=== PATIENT | female | born 1965 ===

== ENCOUNTER 2020-02-08 08:34 | Day surgery (SDC) | payer OTHER ==
[~2020-02-08 08:34] MED LIST: CLONAZEPAM0.5 MG PO; FOSAMAX70 MG PO; LITHOBID300 M1 PO; SYNTHROID50 MCG PO; WELLBUTRIN SR150 MG; [UNRECOGNIZED DRUG - OTHER]
[2020-02-08] MEDS ORDERED: ZITHROMAX500 MG PO (14:20)
== END 2020-02-08 16:50 | disposition home or self-care (01) ==
LOC: CIR.AMB 08:34 → ADM 10:45 → CIR.AMB 10:45
PROVIDERS: ATTEND Obstetrics & Gynecology
DX: N84.0 Polyp of corpus uteri (principal); N72 Inflammatory disease of cervix uteri

== ENCOUNTER 2020-11-14 10:00 | Inpatient (IN) | payer OTHER ==
[~2020-11-14] VITALS: Ht 157.5 cm; Wt 68.0 kg
[~2020-11-14 10:00] MED LIST changes: +ZITHROMAX500 MG PO
[2020-11-22] MEDS ORDERED: PANTOPRAZOLE SO40 MG (09:17)
[2020-11-22] MEDS ORDERED: FOLIC ACID1 MG (09:17)
[2020-11-22] MEDS ORDERED: DOLOGESIC-DF 51 EACH (09:17)
[2020-11-22] MEDS ORDERED: ATORVASTATIN CA20 MG (09:18)
[2020-11-22] MEDS ORDERED: OMEGA-3 ACID ETH1 GM (09:18)
[2020-11-22] MEDS ORDERED: ZANAFLEX2 MG (09:18)
[2020-11-22] MEDS ORDERED: BUTALB-ACETAMI1 EAC2 (09:19)
[2020-11-23] MEDS ORDERED: ULTRACET PO (08:35)
[2020-11-23] MEDS ORDERED: COLACE100 MG PO (08:36)
== END 2020-11-23 12:23 | disposition home or self-care (01) | DRG 743 ==
LOC: O/R 11-21 05:20 → SURH 11-21 07:00 → O/R 11-21 12:02 → SURG 11-21 16:59
PROVIDERS: ADMIT Obstetrics & Gynecology; ATTEND Obstetrics & Gynecology
PROC: 0UT10ZZ Resection of Left Ovary, Open Approach (ICD-10-PCS; 2020-11-21)
PROC: 0UT60ZZ Resection of Left Fallopian Tube, Open Approach (ICD-10-PCS; 2020-11-21)
PROC: 0UB50ZZ Excision of Right Fallopian Tube, Open Approach (ICD-10-PCS; 2020-11-21)
PROC: 0UJD4ZZ Inspection of Uterus and Cervix, Percutaneous Endoscopic Approach (ICD-10-PCS; 2020-11-21)
PROC: 0UT90ZZ Resection of Uterus, Open Approach (ICD-10-PCS; principal; 2020-11-21 07:00)
DX: N80.0 Endometriosis of uterus (principal); D25.1 Intramural leiomyoma of uterus; N83.292 Other ovarian cyst, left side; N83.8 Other noninflammatory disorders of ovary, fallopian tube and broad ligament; N84.0 Polyp of corpus uteri; N73.6 Female pelvic peritoneal adhesions (postinfective); N70.11 Chronic salpingitis; N95.0 Postmenopausal bleeding